=== PATIENT | female | born 1975 | race Caucasian/White ===

== ENCOUNTER 2016-12-27 21:44 | Emergency (ER) | payer MEDICAID ==
[~2016-12-27 21:44] MED LIST: BACTRIM1 TAB; BG MC; GLU5 PO; KEFLEX250 MG; LAC PO; LEVAQUIN500 MG PO; MAC100 PO; METFORMIN HYD1000 M1 PO
[2016-12-27 22:32] LABS: BASOPHIL % 0.2 % (0-2); PLATELET COUNT 359 x10^3mcL (130-400); RED CELL DISTRIBUTION WIDTH 13.8 % (11.5-14.5)
[2016-12-27 22:40] LABS: CALCIUM 8.8 mg/dL (8.5-10.1); CARBON DIOXIDE 28.7 mmol/L (21-32); CHLORIDE SERUM 95 mmol/L (98-107); CREATININE SERUM 0.9 mg/dL (0.6-1.0); GFR1 > 60 mL/min; GLUCOSE SERUM 435 mg/dL (74-106); POTASSIUM SERUM 3.9 mmol/L (3.5-5.1); SODIUM SERUM 132 mmol/L (136-145)
[2016-12-27 22:45] LABS: ALKALINE PHOSPHATASE 100 U/L (46-116); ALT/SGPT 12 U/L (14-59); AST/SGOT 9 U/L (15-37); BILIRUBIN TOTAL 0.3 mg/dL (0.20-1.00); TOTAL PROTEIN, SERUM 7.5 g/dL (6.4-8.2)
[2016-12-27 22:50] LABS: ALBUMIN 2.6 g/dL (3.4-5.0)
[2016-12-27 23:12] LABS: UA SPECIFIC GRAVITY 1.015 (1.005-1.035); microscopic required? YES; urine erythrocyte 1+ (NEGATIVE)
[2016-12-28 00:20] VITALS: BP 138/81
== END 2016-12-28 00:20 | disposition home or self-care (01) ==
LOC: ED 21:44
PROVIDERS: Emergency Medicine
DX: E11.65 Type 2 diabetes mellitus with hyperglycemia (principal); Z79.84 Long term (current) use of oral hypoglycemic drugs
CPT/HCPCS: J1815; J7030; Q0092

== ENCOUNTER 2018-02-05 17:27 | Emergency (ER) | payer MEDICAID ==
[~2018-02-05] VITALS: Ht 160 cm; Wt 54.9 kg
[2018-02-05 18:28] VITALS: Ht 160 cm; Wt 54.9 kg
[2018-02-05 20:02] VITALS: BP 166/96
== END 2018-02-05 20:02 | disposition home or self-care (01) ==
LOC: ED 17:27
DX: K04.7 Periapical abscess without sinus (principal); R51 Headache; I10 Essential (primary) hypertension; E11.9 Type 2 diabetes mellitus without complications; E78.00 Pure hypercholesterolemia, unspecified

== ENCOUNTER 2018-07-13 16:25 | Emergency (ER) | payer MEDICAID ==
[~2018-07-13] VITALS: Ht 152.4 cm; Wt 56.7 kg
[2018-07-13 16:31] VITALS: Ht 152.4 cm; Wt 56.7 kg
[2018-07-13 17:09] VITALS: BP 182/98
== END 2018-07-13 17:09 | disposition home or self-care (01) ==
LOC: ED 16:25
DX: G44.209 Tension-type headache, unspecified, not intractable (principal); L84 Corns and callosities; I10 Essential (primary) hypertension; E11.9 Type 2 diabetes mellitus without complications; E78.00 Pure hypercholesterolemia, unspecified; Z98.890 Other specified postprocedural states
CPT/HCPCS: 82962